=== PATIENT | female | born 1955 | race Caucasian/White ===

== ENCOUNTER → 2017-08-13 22:41 | Outpatient (CLI) | payer OTHER | END | disposition home or self-care (01) | LOC: D.MAMMO 07-24 15:30 | DX: Z12.31 Encounter for screening mammogram for malignant neoplasm of breast (principal) ==

== ENCOUNTER → 2017-09-17 08:00 | Outpatient (CLI) | payer OTHER ==
[~2017-09-17 08:00] MED LIST: LIPITOR20 MG; NAPROSYN500 MG PO; NEURONTIN 300300 MG; NORVASC5 MG
== END | disposition home or self-care (01) ==
LOC: D.MAMMO 08:00
DX: R92.8 Other abnormal and inconclusive findings on diagnostic imaging of breast (principal)

== ENCOUNTER 2017-09-18 21:41 | Emergency (ER) | payer OTHER ==
[~2017-09-18] VITALS: Ht 157.5 cm; Wt 69.1 kg
[2017-09-18 21:48] VITALS: Ht 157.5 cm; Wt 69.1 kg
[2017-09-18] MEDS ORDERED: NEURONTIN 300300 MG (21:49)
[2017-09-18] MEDS ORDERED: NORVASC5 MG (21:49)
[2017-09-18] MEDS ORDERED: LIPITOR20 MG (21:50)
[2017-09-18] MEDS ORDERED: NAPROSYN500 MG PO (23:20)
[2017-09-18 23:35] VITALS: BP 145/88
== END 2017-09-18 23:35 | disposition home or self-care (01) ==
LOC: D.ER 21:41
DX: S06.0X0A Concussion without loss of consciousness, initial encounter (principal); W22.8XXA Striking against or struck by other objects, initial encounter; Y93.89 Activity, other specified; Y92.019 Unspecified place in single-family (private) house as the place of occurrence of the external cause; S01.01XA Laceration without foreign body of scalp, initial encounter

== ENCOUNTER 2018-01-18 10:57 | Day surgery (SDC) | payer OTHER ==
[~2018-01-18] VITALS: Ht 160 cm; Wt 81.6 kg
--- NOTE | ~2018-01-18 | OP ---
PATIENT NAME: EZIO FRENCH MEDICAL RECORD: [id number] :57 LOCATION:[facility] ADMISSION DATE: SURGEON: CARMINE CAM DO DATE OF OPERATION: 01/18/2018 PROCEDURE PERFORMED: Right ankle open reduction internal fixation of the distal fibula and syndesmotic fixation. PREOPERATIVE DIAGNOSIS: Left ankle fracture, displaced lateral malleolus fracture with syndesmotic disruption. POSTOPERATIVE DIAGNOSIS: Left ankle fracture, displaced lateral malleolus fracture with syndesmotic disruption. INDICATIONS: Ms. French is a 62-year-old female who fractured her ankle approximately 3 weeks ago. She did not realize she did it by walking on it for 3 weeks. Says initially she can bear weight, but then started bearing weight on it in a boot. She was seen by primary care, an x-ray was taken, and she was sent to my office. She was seen yesterday and then put on the surgery schedule for today. She was warned of the risks and benefits of procedure including damage to nerves, vessels, and numbness in the top of the foot from the superficial peroneal nerve and loss of fixation if she walked on it. She is warned she would not be able to walk on it for about 6 weeks. She is a diabetic as well, which does complicate the situation. She was informed of the risks, benefits and consented to the procedure. SURGEON: Carmine Cam DO DESCRIPTION OF PROCEDURE: The patient was given a block by anesthesia in the preoperative area and taken to the operative suite, laid in the supine position with a bump under the right hip. 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 She carried a card around that said that, so she was given 2 different antibiotics. The timeout was performed, everyone was in agreement with the correct side, site, patient. The right lower extremity was then exsanguinated with an Esmarch and the tourniquet was inflated for 60 minutes at 350 mmHg throughout the procedure. Once the tourniquet was inflated, an Esmarch was removed and skin incision was made over the fibula. Dissection was made down to the fibula and some callus had formed. This was removed. The reduction maneuver was made and the plate was put on locking distally first and then proximally with 3 screws and then a lag screw through the plate. This was later changed out for a locking screw. Then, the large reducing clamp was used. A mundo was made over the medial malleolus and we compressed the ankle with the reduction clamp, large reduction clamp and 2 syndesmotic TightRopes were placed across the first and one across the second one, failed and came out and was cut out and then a third one was put through that same hole. This was cinched down. The clamp was removed. X-rays were taken. It was stressed and held very well. There was no medial space widening. An x-ray was taken of the lateral as well and seen to be in good position. The tourniquet was then let down and bleeding was coagulated with a pickup and Bovie. Irrigation was then done and then the skin was closed with 2-0 Vicryl in inverted interrupted fashion and a ZipLine was placed over the skin and a mundo over the medial malleolus closed with a 4-0 Monocryl in an inverted interrupted fashion. Then, Adaptic, 4 x 4s, and ABD was placed over the foot and ankle and a Kerlix was wrapped over that and then 2 rolls of cast padding were placed and then a posterior splint was placed on the patient and OPERATIVE REPORT [id number] EZIO FRENCH overwrapped with an Vidal wrap and the leg was held while the splint formed. The patient was then awakened and taken to recovery in stable condition. ESTIMATED BLOOD LOSS: Minimal. COMPLICATIONS: None. TOURNIQUET TIME: 60 minutes. 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
[~2018-01-18 10:57] MED LIST changes: +BUPROPION XL150 MG PO; -LIPITOR20 MG; +LIPITOR20 MG PO; +MAG-OX 400 MG400 MG PO; +TOPROL XL50 MG PO; +VALIUM10 MG PO
[2018-01-18 11:50] LABS: HEMATOCRIT 42.4 % (36.0-48.0); HEMOGLOBIN 14.3 g/dL (12-16); MCH 33.9 pg (26.0-34.0); MCHC 33.7 g/dL (31.0-37.0); MCV 100.5 fL (80.0-100.0); MEAN PLATELET VOLUME 11.3 fL (7.4-10.4); RBC 4.22 10x6/uL (4.00-5.40); RDW 13.1 % (11.5-14.5); WBC 7.6 10x3/uL (4.8-10.8)
[2018-01-18 13:28] VITALS: BP 146/70; Ht 160 cm; Wt 81.6 kg
[2018-01-18] MEDS ORDERED: OXYCODONE-APAP1 T10 PO (16:39)
[2018-01-18] MEDS ORDERED: KEFLEX500 MG PO (16:40)
[2018-01-18] MEDS ORDERED: ELIQUIS2.5 MG PO (16:40)
== END 2018-01-18 18:50 | disposition home or self-care (01) ==
LOC: D.OPS 10:57 → D.PAN 13:15 → D.OPS 18:50
PROVIDERS: Anesthesiology
DX: S82.62XA Displaced fracture of lateral malleolus of left fibula, initial encounter for closed fracture (principal)